=== PATIENT | female | born 1975 | race Caucasian/White ===

== ENCOUNTER → 2018-02-03 | Outpatient (CLI) | payer BC ==
[~2018-02-03] MED LIST: ATIVAN 1MG T1 MG/TAB PO; BACTRIM DS 8001 TAB PO; BCP TD; CIPRO 500MG TA500 MG PO; CLINDAMYCIN; CYMBALTA 60MG60 MG PO; DESYREL 100MG100 MG PO; FLEXERIL10 MG PO; LEXAPRO 10MG10 MG PO; MOTRIN 200200 MG/TAB PO; MOTRIN800 MG PO; NORCO 325 MG-51 TAB; NORCO 325 MG-51 TAB PO; PERCOCET 5/321 UDTAB PO; PHENERGAN 25 TA25 MG PO; PRENATAL1 TA3 PO; PYRIDIUM200 M1 PO; ULTRACET TABL1 UDTAB PO; ULTRAM 50MG TAB50 MG PO; VICODIN 5/5001 UDTAB PO
== END ==
LOC: COL.RAD 07:30
DX: E04.1 Nontoxic single thyroid nodule (principal)

== ENCOUNTER 2018-09-08 19:26 | Emergency (ER) | payer BC ==
[~2018-09-08] VITALS: Ht 152.4 cm; Wt 102.3 kg
[2018-09-08 19:31] VITALS: BP 145/83; TEMP 97.2
[2018-09-08] MEDS ORDERED: CEPHALEXIN500 M1 PO (21:26)
[2018-09-08 21:39] VITALS: PULSE 78
== END 2018-09-08 21:39 | disposition home or self-care (01) ==
LOC: COL.ER 19:26
DX: S62.633A Displaced fracture of distal phalanx of left middle finger, initial encounter for closed fracture (principal); S61.313A Laceration without foreign body of left middle finger with damage to nail, initial encounter; Z23 Encounter for immunization; Z87.891 Personal history of nicotine dependence; W23.0XXA Caught, crushed, jammed, or pinched between moving objects, initial encounter; Y92.511 Restaurant or cafe as the place of occurrence of the external cause

== ENCOUNTER 2019-01-11 19:57 | Emergency (ER) | payer BC ==
[~2019-01-11] VITALS: Ht 170.2 cm; Wt 103.6 kg
[~2019-01-11 19:57] MED LIST changes: +CEPHALEXIN500 M1 PO
[2019-01-11 21:07] LABS: BASO # 0.1 (0.0-0.2); BASO % 0.4 % (0.0-2.0); EOS # 0.3 (0.0-0.7); EOS % 2.4 % (0-4.0); GRAN # 11.1 (1.4-6.5); GRAN % 82.9 % (42.2-75.2); LYMPH # 1.1 (1.2-3.4); LYMPH % 8.4 % (20.0-51.0); MEAN CELL VOLUME 68 fl (80.0-100.0); MEAN CORPUSCULAR HGB CONC 30 g/dl (33.0-37.0); MEAN PLATELET VOLUME 8.7 fl (7.4-10.4); MONO # 0.7 (0.1-0.6); MONO % 5.5 % (1.7-9.3); PLATELET COUNT 434 K/mm3 (130-400); RED BLOOD COUNT 4.67 M/mm3 (4.10-5.30); REDCELL DISTRIBUTION WIDTH-CV 17.2 % (11.5-14.5)
[2019-01-11 21:09] LABS: HEMATOCRIT 31.7 % (37.0-47.0); HEMOGLOBIN 9.6 g/dl (12.5-16.0); MEAN CORPUSCULAR HEMOGLOBIN 21 pg (27.0-31.0)
[2019-01-11 21:25] LABS: COLLECTION METHOD CLEAN CATCH
[2019-01-11 21:27] LABS: ALBUMIN 4.3 gm/dL (3.5-5.0); BILIRUBIN,TOTAL 0.3 mg/dL (0.0-1.0); C-REACTIVE PROTEIN 2.4 mg/dL (0.0-0.9); CALCIUM 9.2 mg/dL (8.4-10.2); CREATININE, serum 0.74 (0.52-1.25); POTASSIUM 3.6 mmol/L (3.4-5.0); TOTAL PROTEIN 8.4 gm/dL (6.4-8.2)
[2019-01-11 21:34] LABS: MUCOUS Present /lpf; PH 7 (5-8); SQUAMOUS EPITHELIAL None Seen /hpf; URINE APPEARANCE Clear; URINE BACTERIA Rare /hpf; URINE BILIRUBIN Negative (NEGATIVE); URINE BLOOD Negative (NEGATIVE); URINE COLOR Straw; URINE GLUCOSE Negative (NEGATIVE); URINE KETONE Negative (NEGATIVE); URINE LEUKOCYTE ESTERASE Negative (NEGATIVE); URINE NITRATE Negative (NEGATIVE); URINE PROTEIN(semi-quant) Negative (NEGATIVE); URINE RBC 0-2 /hpf; URINE UROBILINOGEN Negative (NEGATIVE)
[2019-01-11 21:49] VITALS: TEMP 100.4
[2019-01-11] MEDS ORDERED: BENADRYL25 M2 PO (21:50)
[2019-01-11] MEDS ORDERED: MACROBID 1100 MG/CAP PO (21:51)
[2019-01-12] MEDS ORDERED: OMNICEF 300MG300 MG PO (00:58)
[2019-01-12 01:16] VITALS: BP 122/82; PULSE 90
== END 2019-01-12 01:16 | disposition home or self-care (01) ==
LOC: COL.ER 19:57
PROVIDERS: Physician Assistant
DX: N10 Acute pyelonephritis (principal); D64.9 Anemia, unspecified; R51 Headache; R07.89 Other chest pain; M79.7 Fibromyalgia; F41.9 Anxiety disorder, unspecified; Z98.51 Tubal ligation status; Z90.49 Acquired absence of other specified parts of digestive tract; Z86.69 Personal history of other diseases of the nervous system and sense organs
CPT/HCPCS: A4216; J0696; J1885; J2405; J7030; Q9967

== ENCOUNTER → 2020-10-08 | Outpatient (CLI) | payer BC ==
[~2020-10-08] MED LIST changes: +BENADRYL25 M2 PO; +MACROBID 1100 MG/CAP PO; +OMNICEF 300MG300 MG PO
== END ==
LOC: COL.RAD 14:45
DX: E04.2 Nontoxic multinodular goiter (principal)